=== PATIENT | male | born 1965 | race Caucasian/White ===

== ENCOUNTER 2025-03-24 06:08 | Observation (INO) | payer BC, SELFPAY ==
[2025-03-24] VITALS (20 sets, daily range): BP systolic 147–204; BP diastolic 94–148; PULSE 90–95; BMI 31.9
[2025-03-24 02:04] LABS: Hematocrit 43.4 % (39.0-52.0); Hemoglobin 15.2 g/dL (13.0-18.0); Mean Corp Hgb Conc. 35.0 g/dL (33.0-37.0); Mean Corpuscular Volume 87.9 fL (80.0-94.0); Nucleated Red Blood Cells % 0 % (-); Platelet Count 242 10^3/uL (130-400); Red Cell Dist. Width 11.8 % (11.5-14.5)
--- NOTE | 2025-03-24 02:14 | ED.GENMED ---
History of Present Illness
General
Chief Complaint: Weakness
Source: patient and ambulance crew
Exam Limitations: none
Time Seen by Provider: 03/24/25 01:46
Nursing documentation reviewed up to this point in time: agreed with
History of Present Illness
History of Present Illness:
This is a 60-year-old gentleman who resides at home with his . He has history of chronic postnasal drip, chronic cough, ocular migraines, cervical DJD who presents via EMS, prehospital stroke alert when he noted right lower facial numbness as
well as right palmar numbness that began around 00 45 shortly after lying down to bed on his right side. He attempted to reposition, symptoms improved with lying on his back but then seem to recur and 'come and go' over the past hour not
necessarily exacerbated nor relieved with position change in bed. Intermittent numbness of his right lower face, right hand without associated weakness. No headache, no vision difficulty, no difficulty with his speech, no dizziness or
lightheadedness. No chest pain nor shortness of breath.
He does have a history of ocular migraines and reports having had typical ocular migraine that lasted approximately 10 minutes yesterday and again this evening prior to onset of facial and hand paresthesia. Prior to yesterday's most recent ocular
migraine was 5 months ago. He had been evaluated by neuro-agriculture inspector as well as an agriculture inspector a number of years ago.
His only daily medications are Xyzal and Flonase.
He does have history of cervical DJD but denies recent injury nor lifting, denies neck pain.
If applicable-neuro sx onset
Date of onset of symptoms: 03/24/25
Time of onset of symptoms: 00:45
Past History
Past History
ED Past Medical History: Other (Chronic rhinitis/chronic postnasal drip, chronic cough. Tinnitus. Follows with ENT and maintained on Xyzal and Flonase.) and Other ( Cervical DJD; ocular migraines)
ED Past Surgical History: None
Social History
Tobacco: Non-smoker
Alcohol: Occasional
Drug: None
Personal:
Living: with family
Family History
Family History: Other (Noncontributory)
Phy Exam
Physical Exam
Physical Exam:
GENERAL: 60-year-old gentleman appears his stated age, awake and alert, pleasant, mildly anxious but easily communicative and in no acute distress.
EYE: pupils equal and reactive. Extraocular muscles intact, anicteric
NECK: Supple, nontender, no meningismus, no significant adenopathy.
ENT: posterior pharynx is clear, oral mucosa is moist. TM clear b/l, nares patent. There is no facial droop. No appreciable sensory loss.
CARDIAC: Regular rhythm, mildly tachycardic. no murmur.
LUNGS: Clear breath sounds bilaterally, no acute respiratory distress, no wheezes/rales/rhonchi
ABDOMEN: Rotund, soft, nondistended, without focal tenderness, no r/g, normoactive BS.
NEUROLOGICAL: Alert and oriented x3, cranial nerves II through XII grossly intact, motor strength is 5/5 bilaterally. No drift. Good [id number]. Normal speech pattern. No aphasia. No focal neuro deficits. Initial NIH stroke scale of 0
SKIN: Warm and dry, normal color, skin intact. No rash.
MUSCULOSKELETAL: No C/C/E. peripheral pulses are full and equal b/l. No palpable tenderness.
PSYCH: Normal and appropriate interaction.
Scores
NIH Stroke Score
Level of Consciousness: 0 - Alert
LOC Questions: 0-Answers both correctly
LOC Commands: 0-Performs both correctly
Best Horizontal Gaze: 0-Normal
Visual Bland: 0=Normal, no visual loss
Facial Palsy: 0=Normal, symmetrical
Motor - Right Arm: 0=No drift 10 seconds
Motor - Left Arm: 0=No drift 10 seconds
Motor - Right Le-No drift 5 seconds
Motor - Left Le-No drift 5 seconds
Limb Ataxia: 0-Absent
Sensation: 0-Normal
Best Language: 0-No aphasia
Dysarthria: 0-Normal
Extinction and Inattention: 0-No abnormality
NIH Total Score:: 0
Course
Orders/Labs/Results
Orders:
Orders
03/24/25 01:48
Electrocardiogram (*1) Urgent
Reason for Study: Other
Other Reason for Exam: Possible Stroke
CT HEAD STROKE ALERT W/o Cont Urgent
Comment:
Reason For Exam: numbness
CT HEAD/NECK ANG STROKE ALERT Urgent
Comment:
Reason For Exam: Numbness
Bedside Glucose- Treatment ONCE
Cardiac Monitoring- Treatment ONCE
EKG- Treatment ONCE
IV Insert/Care/Rem.- Treatment PRN
Vital Signs As Directed
Frequency: Other
Weight As Directed
Frequency: Once
Comment: ZERO STRETCHER SCALE FOR ACCURATE WEIGHT
O2 Therapy [RESP] Urgent
Titrate/Wean O2 to maintain O2 sat greater than (%): 93
Special Instructions: MAINTAIN CONTINUOUS O2 SATS > OR = 93%
03/24/25 01:52
Complete Blood Count/With Diff Urgent
Comprehensive Metabolic Panel Urgent
PTT Urgent
Prothrombin Time Urgent
TSH Reflex To Free T4 Urgent
Comment: ADD ON
Troponin I Urgent
03/24/25 02:[address] BRAIN PERF STROKE ALERT Urgent
Comment:
Reason For Exam: abnormal CTA head. numbness R face, R hand
03/24/25 02:40
Add On- LAB Urgent
Tests Added?: TSH w reflex to free T-4
Abnormal Lab Results
03/24/25 03/24/25
01:52 02:50
Absolute Lymphs (auto) 3.7 H 10^3/uL
(1.2-3.4)
Absolute Monos (auto) 1.2 H 10^3/uL
(0.1-0.6)
Neutrophils % 41.0 L %
(42.2-75.2)
Monocytes % 13.9 H %
(1.7-9.3)
Glucose 134 H mg/dl
(70-99)
POC Glucose 120 H mg/dl
(70-99)
03/24/25 01:52
03/24/25 01:52
Vital Signs
Initial and Last Documented VS:
Initial Vital Signs
Pulse Pulse Ox
117 19
03/24/25 01:46 03/24/25 01:46
Last Documented Vital Signs
Temp Pulse Resp BP Pulse Ox
98.6 F 101 16 156/106 93
03/24/25 03:50 03/24/25 04:30 03/24/25 04:30 03/24/25 04:00 03/24/25 04:30
MDM/Problems Addressed
Differential Diagnosis Includes:
Concern for TIA/CVA
Concern for peripheral neuropathy/cervical DJD
Concern for complex migraine syndrome
Concern for ACS
Concern for electrolyte abnormality
MDM/Problems Addressed:
Patient presents as a prehospital stroke alert with acute onset of focal paresthesia of right lower face/jaw region and right palmar hand without other associated symptoms. Paresthesia 'comes and goes'
Initial NIH stroke scale of 0. Patient is not a TNK candidate
He does have a history of ocular migraines and there is some concern for complex migraine syndrome. Currently denies headache. Denies vision difficulty.
Will check CT of the head, CTA head and neck. With NIH stroke scale is 0, no appreciable neurodeficits, no indication for CT perfusion.
Will check labs, EKG.
*Radiology
Radiology exam reviewed: radiology read reviewed
*Pulse Oximetry
SaO2: 96
Oxygen Mode of Delivery: Room air
Patient hypoxic: no
*EKG
Interpreted by ED Provider?: Yes
Interpretation: abnormal
Comparison EKG: no comparison EKG present
Rate: tachycardiac
Rhythm: sinus
[place]: normal axis
Interval: normal interval
QRS Pattern: normal QRS
Ischemia: no ischemia
*Tube Bending Machine Operator Interpretation
Rate: tachycardiac
Heart Rate: 105
Rhythm: sinus
*Critical Care Note
Total Time (30-74mins, 75-104mins- exclusive of procedures): Not Applicable
Update Note
Update Note:
Upon reevaluation patient reports complete resolution of right facial, right hand paresthesia. He continues to have no weakness. No focal neurodeficits.
Moderate hypertension is improving.
CT of the head is unremarkable.
CTA shows several areas of focal high-grade narrowing including left M1�2 junction, right distal M2�3 junction and left KIT PLANNER P2 segment.
CT perfusion shows no evidence of penumbra however with threshold of greater than 4 seconds there is questionable abnormal perfusion left greater than right in the left temporal parietal occipital region. This may be related to chronic ischemic
changes however difficult to exclude oligemia on the left in the KIT PLANNER distribution as well as MCA distribution.
It is reassuring that patient has had resolution of symptoms but due to abnormal CTA and questionable abnormal perfusion recommend admission to hospitalist service for further stroke workup.
ED Attending Note
-
Portions of this chart may have been created with voice recognition software.� Occasional wrong word or��sound alike� substitutions may have occurred due to the inherent limitations of voice recognition software.
Discharge Plan
Departure
Patient Disposition: Admit
Date of Disposition: 03/24/25
Time of Disposition: 04:49
Admit to: Telemetry
Admit to doctor: Jhonatan
Presentation/result/management discussed w/ accepting MD/DO: Hospitalist
Discharge Problem:
TIA r/o CVA
Interventions
Interventions:
*General Assessment Last Done: 03/24/25 02:12
*Neglect/Abuse Screening Last Done: 03/24/25 02:12
*ED COVID-19 Vaccine History Last Done: 03/24/25 02:12
*ED Influenza Vaccine History Last Done: 03/24/25 02:12
[facility] Risk Assessment Tool Last Done: 03/24/25 02:14
*Risk Screen - Suicide (C-SSRS) Last Done: 03/24/25 02:43
ED- Cardiac Assessment Last Done: 03/24/25 02:04
ED- Neurological Assessment Last Done: 03/24/25 04:00
ED- Pulmonary Assessment Last Done: 03/24/25 02:04
Discharge Date and Time
Print Language: GERMAN
[2025-03-24 02:15] LABS: ALT (SGPT) 24 U/L (0-50); AST (SGOT) 26 U/L (17-59); Albumin 4.5 g/dl (3.5-5.0); Alkaline Phosphatase 78 U/L (38-126); Blood Urea Nitrogen 16 mg/dl (9-20); Calcium 9.6 mg/dl (8.4-10.2); Carbon Dioxide 25 mmol/L (22-30); Chloride 106 mmol/L (98-107); Estimated Creatinine Clearance 111 ml/min; Glucose 134 mg/dl (70-99); Potassium 4.1 mmol/L (3.5-5.1); Sodium 139 mmol/L (135-145); Total Protein 7.5 g/dl (6.3-8.2); eGFR > 60.00
[2025-03-24 02:18] LABS: INR 1.01; PT 13.4 Sec (11.4-14.6)
[2025-03-24 02:19] LABS: APTT 26.4 Sec (23.4-35.0)
[2025-03-24 02:27] LABS: Troponin I < 0.012 ng/ml
[2025-03-24 02:52] LABS: Glucose - Point of Care 120 mg/dl (70-99)
--- NOTE | 2025-03-24 04:53 | HPS.HSE ---
Family Physician
-
Family Physician: NOT KNOW UNKNOWN - PT DOES
Chief Complaint
-
Weakness
History of Present Illness
This is a 60 y.o male with past medical history of chronic rhinitis, ocular migraines and cervical DJR who presents to ED with acute episode of R sided facial and hand numbness.
Patient reports sudden onset of numbness around his right-sided cheek as well as the right palmar surface of the hand including the fingers. This had a intermittent effect that lasted for about 1 hour. It was waxing and waning lasting 10 minutes
each time before resolving and then returning. He said he had this episode that occurred about 5 or 6 times. His last episode was 2 hours prior to my evaluation. He also reported at the time he had some subjective weakness in his right leg and he
stumbled but did not fall. He said the weakness in his right leg is now resolved. He denies any prior such episodes.
He reports that he had a recent physical which included coronary calcium scoring and was told that he had a borderline lipid profile but his coronary calcium scoring was negative and patient was not started on a statin at that time. He denies
smoking. He denies a personal history of diabetes. He does report history of stroke in mother and diabetes and hypertension in both parents.
In the emergency department the patient was afebrile, blood pressure was 156/100 with a pulse rate of 102 and oxygen saturation of 93% on room air. ECG shows sinus tachycardia at rate of 105. Troponin was negative. He had a CT of the head which
was negative. He had a CT perfusion study which was negative. CT and CT angiogram showed a high-grade stenosis at L space and 1�2 junction, L space IN STORE MARKETING ASSOCIATE displaced P2 and a focal stenosis at right distal M2�3.
Medical History
Past Medical History
Past Medical History: Reports Other
Additional Past Medical History:
Chronic Rhinnitis
Tinnitus
Migraines (Ocular)
Past Surgical History: Reports None
Social History
Tobacco: Non-smoker
Alcohol: Occasional
Drug: None
Family History
Family History: Not pertinent
Allergies / Home Medications
Allergies reflects when Allergies were last updated in [employer].
Home Medications with original date entered in [employer]
Allergy/Medication List:
Allergies
Allergy/AdvReac Type Severity Reaction Status Date / Time
No Known Allergies Allergy Unverified 03/24/25 02:35
If medication reconciliation has not been performed, why?: Other
Review of Systems
-
Constitutional: Reports No Symptoms
EENT: Reports No Symptoms
Respiratory: Reports No Symptoms
Cardiac: Reports No Symptoms
Abdomen/GI: Reports No Symptoms
: Reports No Symptoms
Musculoskeletal: Reports No Symptoms
Skin: Reports No Symptoms
Neurological: Reports No Symptoms
Endocrine: Reports No Symptoms
Hematologic/Lymphatic: Reports No Symptoms
Psych: Reports No Symptoms
Physical Exam
Vital Signs
Vital Signs
Temp Pulse Resp BP Pulse Ox
98.6 F 101 16 156/106 93
03/24/25 03:50 03/24/25 04:30 03/24/25 04:30 03/24/25 04:00 03/24/25 04:30
Physical Exam
General: Well Developed, Well Nourished and No Apparent Distress
HEENT: NormoCephalic, Moist mucous membranes and Atraumatic
Respiratory: Clear
Cardiac: S1/S2 and Regular Rhythm; No Murmur or Rub
GI: Soft, Non Tender, Non Distended and Normal Bowel Sounds; No Organomegaly
Rectal: Deferred by Provider
Musculoskeletal: No Clubbing, No Cyanosis and No Edema
Skin: No Rash
Neuro: AO x 3 and Nonfocal/grossly intact
Laboratory Results
-
03/24/25 01:52
03/24/25 01:52
Laboratory Results
PT 13.4 Sec (11.4-14.6) 03/24/25 01:52
INR 1.01 03/24/25 01:52
APTT 26.4 Sec (23.4-35.0) 03/24/25 01:52
Total Bilirubin 0.7 mg/dl (0.2-1.3) 03/24/25 01:52
AST 26 U/L (17-59) 03/24/25 01:52
ALT 24 U/L (0-50) 03/24/25 01:52
Alkaline Phosphatase 78 U/L (38-126) 03/24/25 01:52
Troponin I < 0.012 ng/ml 03/24/25 01:52
Data Reviewed
-
CT Scan: Report Reviewed by me
Medical Tests (Nuc Med, Echo, EKG etc): Image Personally Visualized and interpreted
Lab Data: Labs Reviewed by me
Impression/Plan
-
IMPRESSION:
60-year-old with past medical history of chronic rhinosinusitis presenting to the emergency department with 1 hour of intermittent numbness on the right face and palmar surface of the right hand now resolved. Vital signs showed hypertension in the
emergency department but patient reports no history of hypertension. ECG shows sinus tachycardia. Labs are completely normal. Troponin was negative. Patient CT scan shows no acute stroke and the CT perfusion study was negative. The CT angio did
show high-grade stenosis left M1 to junction as well as left IN STORE MARKETING ASSOCIATE at the P2 branch and a focal stenosis at the right distal M2�3. Currently NIHSS equals 0. Has no history of diabetes hyperlipidemia but does report family history of atherosclerotic
coronary artery disease and CVA.
PLAN:
TIA�patient has a TIA with a NIHSS score of 0 right now, ABCD2 equals 3. He does have large vessel stenosis without occlusion and history of right intracranial circulation and tactile explained his TIA.
� Admit to telemetry
� Will start short-term antiplatelet therapy with aspirin 325 daily for now, Plavix per neurology
- patient refused initiation of statin
� Neurochecks every 4 hours
� Will obtain MRI, echocardiogram, TSH and inflammatory markers
� Check lipid panel and A1c in a.m.
� Neurology consultation
� Permissive hypertension for now but follow blood pressures, patient is somewhat anxious at this time.
-- PT consult
DVT prophylaxis�SCDs for now
CODE STATUS�full code
--- NOTE | 2025-03-24 06:00 | W.PN.UPDATE ---
Update Note
Progress Note Update
orders placed for Dr. Delvalle
[2025-03-24] MEDS: ASPIRIN 325 MG PO (07:19)
--- NOTE | 2025-03-24 09:37 | PTCARENOTE ---
Patient admitted from the ED to 2257 at 0810 with diagnosis of TIA. Patient is no longer experiencing right facial and right hand numbness/tingling. ST on the monitor, neuro status within normal limits. Patient taken for his MRI and echo.
--- NOTE | 2025-03-24 11:37 | CM ---
Reviewed chart. Met with and Mrs. Mallory to review discharge plans. He states prior to admission he resides with his spouse in a two story home with two steps to enter. He states he has a full flight of steps to get to bedroom/full
bathroom. He states he has a powder room mon the first floor. He states prior to admission he was independent with ambulation and adls. He states he does not have any DME in the home. He states he has a prescription and uses [facility]..
Will need to see his current functional status to see if he will have any skilled care needs. Medical work-up in progress. The discharge plan is to return home withh is spouse when medically stable.
--- NOTE | 2025-03-24 15:30 | CON.NEURO4 ---
Consultation - Neurology 4
-
CONSULTING PHYSICIAN: Dr. Tadeo Barker
REFERRING PHYSICIAN: Dr. Alf Velez
DICTATED BY: Dr. Tadeo Barker
DATE/TIME OF REQUEST: 03/24/2025
DATE/TIME OF CONSULTATION: 03/24/2025
Reason for Consultation: Transient ischemic attack
ASSESSMENT AND PLAN:
. CT head does not show acute intracranial abnormality.
. CTa of the head and neck shows focal high-grade narrowing of the left inferior division M1-M2 junction and superior division of the right M2-M3 junction.
. MRI of the brain did not show an acute infarct.
The patient's CTA of head and neck showed focal high-grade narrowing of the left inferior division M1-M2 junction and superior division of the right M2-M3 junction. The patient's case was discussed with the Dr. Burdick at [facility] by Dr. Milner
Agustin, and the decision was that the patient did not need transfer at this point since he is symptom-free for 14 hours, and if symptoms recur then we will call [facility] again.
The patient likely had a TIA. For now the plan is to give the patient on stroke pathway with aspirin 81 mg daily, Plavix 75 mg daily and atorvastatin 40 mg daily.
I had a discussion with the patient and his regarding the assessment and the management plan and they verbalized understanding of our discussion.
History of Present Illness:
This is a 60 y.o male who presents to ED with acute episode of Right-sided facial and hand numbness. Patient reports sudden onset of numbness around his right-sided cheek as well as the right palmar surface of the hand including the fingers. The
patient had multiple episodes of similar symptoms lasting about 10 minutes each, over a period of about 3 hours and then he returned to his baseline. The patient symptoms have resolved fully and he is now back to his baseline.
Past Medical History:
Chronic rhinitis and ocular migraine.
Review of Systems:
The 10 point review of system was negative aside from as given the above history of present illness.
Neurologic Examination:
Alert and oriented x 3,
Speech is clear,
The cranial nerves II to XII are grossly intact
The motor strength is grossly 5/5 bilaterally in upper and lower extremities,
The sensations are intact,
There is no limb ataxia seen.
Vital Signs and Labs
-
Vital Signs and Labs:
Vital Signs
Temp Pulse Resp BP Pulse Ox
36.9 C 87 18 170/94 96
03/24/25 15:37 03/24/25 16:00 03/24/25 15:37 03/24/25 15:30 03/24/25 11:14
Lab Results
03/24/25 01:52
03/24/25 01:52
PT 13.4 Sec (11.4-14.6) 03/24/25 01:52
INR 1.01 03/24/25 01:52
APTT 26.4 Sec (23.4-35.0) 03/24/25 01:52
Sodium 139 mmol/L (135-145) 03/24/25 01:52
Potassium 4.1 mmol/L (3.5-5.1) 03/24/25 01:52
BUN 16 mg/dl (9-20) 03/24/25 01:52
Glucose 134 mg/dl (70-99) H 03/24/25 01:52
Calcium 9.6 mg/dl (8.4-10.2) 03/24/25 01:52
LDL Cholesterol, Calc 108 mg/dl 03/24/25 01:52
Medications
-
Active Medications
Generic Name Dose Route Start Last Admin
Trade Name Freq PRN Reason Stop Dose Admin
Aspirin 81 mg 03/25/25 08:00
Aspirin 81 Mg Chewable Tablet PO 04/22/25 07:59
DAILY NERY
Atorvastatin Calcium 40 mg 03/24/25 18:00 03/24/25 17:45
Atorvastatin (Lipitor) 40 Mg Tablet PO 04/21/25 17:59 40 mg
QPM NERY Administration
Bisacodyl 10 mg 03/24/25 06:59
Bisacodyl 10 Mg Rectal Suppository RECTAL 04/21/25 06:58
[id number] PRN
constipation
Cetirizine HCl 10 mg 03/25/25 22:00
Cetirizine Hcl 10 Mg Tablet PO 04/22/25 21:59
HS NERY
Clopidogrel Bisulfate 75 mg 03/25/25 08:00
Clopidogrel 75 Mg Tablet PO 04/22/25 07:59
DAILY NERY
Polyethylene Glycol 17 grams 03/24/25 06:59
Polyethylene Glycol Powder 17 Grams Packet PO 04/21/25 06:58
DAILYPRN PRN
constipation
Senna/Docusate Sodium 1 tablet 03/24/25 06:59
Docusate W/Senna (Lori-Colace) Tablet PO 04/21/25 06:58
BIDPRN PRN
constipation
Sodium Chloride 0 flush 03/24/25 08:00
Sodium Chloride 0.9% (Flush) Syringe IV 04/21/25 07:59
PER PROTOCOL NERY
Home Medications
�Medication �Instructions �Recorded
fluticasone propionate 50 2 spray intranasal DAILY 03/24/25
mcg/actuation nasal
spray,suspension
levocetirizine 5 mg tablet 5 mg PO DAILY 03/24/25
[2025-03-24 16:10] LABS: HDL Cholesterol 39 mg/dl; LDL Cholesterol, Calculated 108 mg/dl; Very Low Density Lipoprotein 58 mg/dl (0-30)
--- NOTE | 2025-03-24 16:13 | PTOTSP ---
Patient is independent with functional mobility, transfers and ambulation.
Does not demonstrate need for skilled therapy at this time and will be discharged from caseload. IF needs change, please re-consult.
--- NOTE | 2025-03-24 16:38 | W.PN.UPDATE ---
Update Note
Progress Note Update
Spoke with Dr. Burdick at [facility].
He reviewed imaging does not beleived transfer is needed thu since symptpom free for 14hours.
If symtpoms recur then call back to re-triage.
Give first dose plavix now
[2025-03-24] MEDS: PLAVIX 75 MG PO (16:53)
--- NOTE | 2025-03-24 17:06 | PTOTSP ---
Pt presents to OT with good UB AROM, strength and coordination, and grossly intact vision and cognition. Pt is at independent level with basic self care, transfers and functional mobility without AD. Pt feels he is back to his functional baseline.
No further skilled OT indicated at this time.
[2025-03-24] MEDS: LIPITOR 40 MG PO (17:45)
[2025-03-24] MEDS: ZYRTEC 10 MG PO (21:47)
[2025-03-25 03:16] VITALS: BP 129/90
[2025-03-25 03:48] LABS: Hematocrit 43.1 % (39.0-52.0); Hemoglobin 14.9 g/dL (13.0-18.0); Mean Corp Hgb Conc. 34.6 g/dL (33.0-37.0); Mean Corpuscular Volume 88.0 fL (80.0-94.0); Nucleated Red Blood Cells % 0 % (-); Platelet Count 207 10^3/uL (130-400); Red Cell Dist. Width 12.0 % (11.5-14.5)
[2025-03-25 04:14] LABS: C-Reactive Protein < 5.00 mg/L (0.0-10.00)
[2025-03-25 04:45] LABS: TSH 2.34 uIU/ml (0.47-4.68)
--- NOTE | 2025-03-25 05:07 | PTCARENOTE ---
Pt. NSR on the monitor, VSS, NIH 0, neurochecks WNL. Ambulatory with steady gait.
[2025-03-25 07:02] VITALS: BP 137/85
[2025-03-25 08:51] LABS: Glycohemoglobin (HgbA1c) 5.6 % (4.0-5.9)
[2025-03-25] MEDS: FLUSH (NSS) 2 FLUSH IV (09:09)
[2025-03-25] MEDS: LOW STRENGTH ASPIRIN 81 MG PO (09:09)
[2025-03-25] MEDS: PLAVIX 75 MG PO (09:09)
--- NOTE | 2025-03-25 09:28 | PTCARENOTE ---
Patient states he slept well last night, denies any reoccurrence of right facial or right hand numbness/tingling. NIH remains 0, given plavix as ordered.
[2025-03-25 11:36] VITALS: BP 150/83
--- NOTE | 2025-03-25 12:46 | W.DCSUMMARY ---
Discharge Summary
Discharge Data
Date of Admission: 03/24/25
Date of Discharge: 03/25/25
-
Pending Results: No
Hospital Course
60 y.o male with past medical history of chronic rhinitis, ocular migraines and cervical DJR
Presented with right sided facial numbness which was intermittent and last episode at 0230 morning of 03/24. Due to resolved symptoms no TNK was provided. CT brain without evidence of acute cva but did demonstrate focal high-grade narrowing of the
left inferior division M1-M2 junction and superior division of the right M2-M3 junction aad high grade narrowing of the left p2 segment without occlusion. Evaluated by neurology recommended to discuss case with [facility] for potential transfer.
[facility] stroke team reviewed imagining and did not believe transfer for needed for endovascular procedures. Neurology recommended aspirin and plavix for 21days followed by aspirin alone. Take statin at night. Outpatient Neuro and PCP follow up.
2d echo
SUMMARY
1. Normal biventricular size, thickness, and systolic function. LVEF estimated at 60%.
2. No significant valvular heart disease.
3. No pericardial effusion.
4. No prior study available for comparison.
Brain CT
IMPRESSION:
Widely patent carotid arterial system bilaterally.
No findings to suggest internal carotid artery or vertebral artery dissection bilaterally. Dominant left vertebral artery.
Focal high-grade narrowing of the left inferior division M1-M2 junction and superior division of the right M2-M3 junction, as detailed above.
High-grade narrowing of the left P2 segment without occlusion.
Hypoplastic right A1 segment, most likely congenital.
Head CT
IMPRESSION:
No acute intracranial abnormality.
Head/neck CT
IMPRESSION:
Widely patent carotid arterial system bilaterally.
No findings to suggest internal carotid artery or vertebral artery dissection bilaterally. Dominant left vertebral artery.
Focal high-grade narrowing of the left inferior division M1-M2 junction and superior division of the right M2-M3 junction, as detailed above.
High-grade narrowing of the left P2 segment without occlusion.
Hypoplastic right A1 segment, most likely congenital.
Brain MRI
IMPRESSION:
No MRI evidence for an acute infarct.
Right mastoid effusion.
Seen and examiend on the day of discharge 03/25/25. no new complaints. no acute ovenright events
NAD
Scleral Anicteric
MMM
No JVD
CTABL
RRR, S1/S2
Soft, NT, ND, BS+
Warm, Dry
AAOx3
Calm
Discharge Plan
-
Patient Disposition: Home (Routine Discharge)
Discharge Diagnosis/Procedures: TIA
Condition: Good
Diet: As tolerated, Low Fat, Low Cholesterol and 2 Gram Sodium
Activity Restrictions/Additional Instructions:
Presented with right sided facial numbness which was intermittent and last episode at 0230 morning of 03/24. Due to resolved symptoms no TNK was provided. CT brain without evidence of acute cva but did demonstrate focal high-grade narrowing of the
left inferior division M1-M2 junction and superior division of the right M2-M3 junction aad high grade narrowing of the left p2 segment without occlusion. Evaluated by neurology recommended to discuss case with [facility] for potential transfer.
[facility] stroke team reviewed imagining and did not believe transfer for needed for endovascular procedures. Neurology recommended aspirin and plavix for 21days followed by aspirin alone. Take statin at night. Outpatient Neuro and PCP follow up.
2d echo
SUMMARY
1. Normal biventricular size, thickness, and systolic function. LVEF estimated at 60%.
2. No significant valvular heart disease.
3. No pericardial effusion.
4. No prior study available for comparison.
Brain CT
IMPRESSION:
Widely patent carotid arterial system bilaterally.
No findings to suggest internal carotid artery or vertebral artery dissection bilaterally. Dominant left vertebral artery.
Focal high-grade narrowing of the left inferior division M1-M2 junction and superior division of the right M2-M3 junction, as detailed above.
High-grade narrowing of the left P2 segment without occlusion.
Hypoplastic right A1 segment, most likely congenital.
Head CT
IMPRESSION:
No acute intracranial abnormality.
Head/neck CT
IMPRESSION:
Widely patent carotid arterial system bilaterally.
No findings to suggest internal carotid artery or vertebral artery dissection bilaterally. Dominant left vertebral artery.
Focal high-grade narrowing of the left inferior division M1-M2 junction and superior division of the right M2-M3 junction, as detailed above.
High-grade narrowing of the left P2 segment without occlusion.
Hypoplastic right A1 segment, most likely congenital.
Brain MRI
IMPRESSION:
No MRI evidence for an acute infarct.
Right mastoid effusion.
If symptoms return or worsen return to the hospital.
Stand Alone Forms: Return to Work
Referrals:
Riri Lane CRNP [[employer], Neurology] - in two to three weeks
UNKNOWN - PT DOES,NOT KNOW [Family Provider]
Prescriptions:
New
atorvastatin 40 mg Tablet
40 mg PO QPM Qty: 30 0RF
aspirin 81 mg Tablet,Chewable
81 mg PO DAILY Qty: 30 0RF
clopidogrel 75 mg Tablet
75 mg PO DAILY Qty: 30 0RF
Continued
fluticasone propionate 50 mcg/actuation [place],Suspension
2 spray INTRANASAL DAILY
levocetirizine 5 mg Tablet
5 mg PO DAILY
Discharge Orders:
Discharge Patient (As Directed); Ordered 03/25/25
Ordered By: Alf Velez
Care Plan Goals
Care Plan Goals:
Problem: Readiness for enhanced knowledge related to diagnosis and treatment plan
Goal: Understand your diagnosis and treatment plan needs, including medications if applicable.
Instructions: Know your diagnosis, underlying causes and treatment plan options, including medications if applicable. Consult with your health care team to learn about your diagnosis and treatment plan, including medications if applicable.
Discharge Date and Time
Print Language: SLOVAK
--- NOTE | 2025-03-25 14:10 | PTCARENOTE ---
Patient is cleared for discharge with follow up with neuro and his PCP. Reviewed his instructions and he states his understanding. Patient discharged home with his .
== END 2025-03-25 13:35 | disposition home or self-care (01) ==
LOC: IVU 06:08
PROVIDERS: Nurse Practitioner Gerontology; ADMITTING PHYSICIAN Internal Medicine; ATTENDING PHYSICIAN Hospitalist; CONSULT PHYSICIAN Student in an Organized Health Care Education/Training Program; EMERGENCY PHYSICIAN Emergency Medicine
DX: G45.9 Transient cerebral ischemic attack, unspecified (principal); G43.109 Migraine with aura, not intractable, without status migrainosus; R00.0 Tachycardia, unspecified; I10 Essential (primary) hypertension; M47.812 Spondylosis without myelopathy or radiculopathy, cervical region
CPT/HCPCS: 70450; 70496; 70498; 70551; 80053; 80061; 82962; 83036; 84443; 84484; 85025; 85610; 85652; 85730; 86140; 93005; 93306; 97116; 97162; 97166; 99285; G0378; Q9967